=== PATIENT | male | born 1965 | race Native Hawaiian/Other Pacific Islander ===

== ENCOUNTER 2020-10-19 08:40 | Day surgery (SDC) | payer OTHER ==
[2020-10-15 10:24] VITALS: BMI 31.6
[~2020-10-19 08:40] MED LIST: LACTATED RINGERS 1,000 ML IV SCH
[2020-10-19 09:23] VITALS: RESP 16; TEMP 97.7
[2020-10-19] MEDS ORDERED: LIDOCAINE 1% (10MG/ML) FOR IV START INTRADERMA ONE (09:28)
[2020-10-19] MEDS ORDERED: PROPOFOL 10 MG/ML 20 ML VIAL IV ONE (10:13)
--- NOTE | 2020-10-19 10:41 | P.PCN ---
Date of Procedure: 10/19/20 Description of Procedure: BRIEF HISTORY: Patient is a 55-year-old male presenting for outpatient colonoscopy for screening for malignant neoplasm of the colon. No prior colonoscopy. No change in bowel. No family history of colon cancer. PROCEDURE PERFORMED: Colonoscopy with polypectomy. PREOPERATIVE DIAGNOSIS: Screening for malignant neoplasm of the colon, no prior colonoscopy. ESTIMATED BLOOD LOSS: Minimal. IV sedation per Anesthesia. PROCEDURE: After informed consent was obtained, the patient, was brought into the endoscopy unit. IV sedation was administered by Anesthesia under continuous monitoring. Digital rectal examination was normal. Initially the Olympus CF-190 flexible video colonoscope was then inserted in the rectum, gradually advanced into the cecum without any difficulty. Careful examination was performed as the scope was gradually being withdrawn. Ileocecal valve and the appendiceal orifice were visualized and appeared normal. Prep was excellent. Mucosa of the cecum, ascending colon, transverse colon, descending colon, sigmoid colon, and rectum appeared normal. Diminutive 2 mm ileocecal valve polyp removed with forceps polypectomy. Multiple small mouth diverticula in the sigmoid and descending colon. Retroflexion was performed in the rectum and no lesions were seen, low- grade internal hemorrhoids. The patient tolerated the procedure well. IMPRESSION: Diminutive ileocecal valve polyp removed with cold forcep polypectomy. Mild left colonic diverticulosis. RECOMMENDATIONS: Findings of this examination were discussed with the patient and his family. Okay to resume diet. Okay to resume medications. Await pathology from p olypectomy. Recommend repeat colonoscopy in 7 years for colon polyp, pending pathology from polypectomy.
[2020-10-19 11:01] VITALS: BP 118/81; PULSE 69
== END 2020-10-19 11:38 | disposition home or self-care (01) ==
LOC: ORWHC2ENDO 08:40
PROVIDERS: ATTEND Internal Medicine
DX: Z12.11 Encounter for screening for malignant neoplasm of colon (principal); D12.0 Benign neoplasm of cecum; K57.30 Diverticulosis of large intestine without perforation or abscess without bleeding; M06.9 Rheumatoid arthritis, unspecified; F17.200 Nicotine dependence, unspecified, uncomplicated; Z79.1 Long term (current) use of non-steroidal anti-inflammatories (NSAID); Z79.51 Long term (current) use of inhaled steroids; Z79.899 Other long term (current) drug therapy; Z98.890 Other specified postprocedural states
CPT/HCPCS: 88305; 45380; J2704

== ENCOUNTER → 2022-08-01 | Outpatient (CLI) | payer OTHER ==
--- NOTE | 2022-08-01 14:39 | XR ---
EXAMINATION TYPE: XR femur LT DATE OF EXAM: 08/01/2022 2:07 PM INDICATION: Patient age:Male; 57 years old; Reason for study: M79.605 PAIN IN LEFT LEG; COMPARISON: None TECHNIQUE: The left femur was examined in frontal and lateral projections. FINDINGS: No evidence of acute osseous pathology, joint dislocation, or soft tissue swelling mild os teophyte formation of the acetabulum. IMPRESSION: 1. No acute osseous pathology. 2. Mild left hip osteoarthrosis.
== END | disposition home or self-care (01) ==
LOC: RADXRMAIN 13:49
PROVIDERS: ATTEND Internal Medicine
DX: M16.12 Unilateral primary osteoarthritis, left hip (principal)

== ENCOUNTER 2024-09-28 23:57 | Inpatient (IN) | payer OTHER ==
--- NOTE | 2024-09-29 00:32 | ED ---
SOB HPI - General Chief Complaint: Shortness of Breath Stated Complaint: SOB Time Seen by Provider: 09/29/24 00:27 Source: patient, RN notes reviewed Mode of arrival: ambulatory Limitations: no limitations - History of Present Illness Initial Comments: 59-year-old male with history of asthma presenting for shortness of breath x 2 days. States he has been sick with cough, fever, nasal congestion, and bodyaches for approximately 1 week, however cough, wheezing, and shortness of breath worsened 2 days ago. Denies chest discomfort. States he has tried breathing treatments with little relief. States he is having difficulty taking a deep breath in and believes he may have pneumonia. No other health conditions. He is a former smoker. - Related Data Home Medications Medication Instructions Recorded Confirmed Acetaminophen-Codeine 300-30mg 1 tab PO DAILY PRN 10/15/20 10/19/20 [Tylenol w/codeine #3] Budesonide/Formoterol Fumarate 1 puff INHALATION DAILY 10/15/20 10/19/20 [Symbicort 160-4.5 Mcg Inhaler] Ibuprofen 800 mg PO BID PRN 10/15/20 10/15/20 Allergies Allergy/AdvReac Type Severity Reaction Status Date / Time No Known Allergies Allergy Verified 09/29/24 00:02 Review of Systems ROS Statement: Those systems with pertinent positive or pertinent negative responses have been documented in the HPI. ROS Other: All systems not noted in ROS Statement are negative. Past Medical History Past Medical History: Asthma, Rheumatoid Arthritis (RA) Additional Past Medical History / Comment(s): broken tooth History of Any Multi-Drug Resistant Organisms: None Reported Past Surgical History: Orthopedic Surgery Additional Past Surgical History / Comment(s): lt knee arthroscopy Past Anesthesia/Blood Transfusion Reactions: No Reported Reaction Past Psychological History: No Psychological Hx Reported Smoking Status: Former smoker Past Alcohol Use History: None Reported Past Drug Use History: None Reported General Exam Limitations: no limitations General appearance: alert, in no apparent distress Head exam: Present: atraumatic, normocephalic, normal inspection Eye exam: Present: normal appearance, PERRL, EOMI. Absent: scleral icterus, conjunctival injection, periorbital swelling Respiratory exam: Present: wheezes (Expiratory wheezing in all lung ch bilaterally). Absent: normal lung sounds bilaterally, respiratory distress, rales, rhonchi, stridor, accessory muscle use Cardiovascular Exam: Present: normal rhythm, tachycardia, normal heart sounds. Absent: systolic murmur, diastolic murmur, rubs, gallop, clicks Course Vital Signs 09/28/24 09/29/24 09/29/24 23:58 01:09 01:14 Temperature 99.6 F 100.2 F H Pulse Rate 112 H 103 H 103 H Respiratory 20 22 Rate Blood Pressure 142/90 140/96 O2 Sat by Pulse 93 L 93 L Oximetry 09/29/24 09/29/24 09/29/24 01:20 02:28 03:00 Temperature 101.1 F H 98.4 F Pulse Rate 109 H 107 H 100 Respiratory 20 19 16 Rate Blood Pressure 134/89 116/87 O2 Sat by Pulse 91 L 96 Oximetry Medical Decision Making - Medical Decision Making Was pt. sent in by a medical professional or institution (Dr. PA, [facility], urgent care, hospital, or senior living...) When possible be specific @ -No Did you speak to anyone other than the patient for history (EMS, parent, family, police, friend...)? What history was obtained from this source @ -No Did you review nursing and triage notes (agree or disagree)? Why? @ -I reviewed and agree with nursing and triage notes Were old charts reviewed (outside hosp., previous admission, EMS record, old EKG, old radiological studies, urgent care reports/EKG's, senior living records)? Report findings @ -No old charts were reviewed Differential Diagnosis (chest pain, altered mental status, abdominal pain women, abdominal pain men, vaginal bleeding, weakness, fever, dyspnea, syncope, headache, dizziness, GI bleed, back pain, seizure, CVA, palpatations, mental health, musculoskeletal)? @ -Differential Dyspnea: Coronary syndrome, arrhythmia, tamponade, asthma, COPD, pulmonary embolism, pneumonia, pneumothorax, pulmonary effusion, anaphylaxis, diabetic ketoacidosis, flailed chest, pulmonary contusion, diaphragmatic rupture, anemia, neuromuscular, this is not meant to be an all-inclusive list. EKG interpreted by me (3pts min.). @ -None X-rays interpreted by me (1pt min.). @ -Chest x-ray reveals consolidation changes at left upper lobe CT interpreted by me (1pt min.). @ -None done U/S interpreted by me (1pt. min.). @ -None done What testing was considered but not performed or refused? (CT, X-rays, U/S, labs)? Why? @ -None What meds were considered but not given or refused? Why? @ -None Did you discuss the management of the patient with other professionals (professionals i.e. , PA, [facility], lab, RT, psych nurse, health care social worker, industrial engineering manager, teacher, staff electronic warfare officer, oil field caser)? Give summary @ -No Was smoking cessation discussed for >3mins.? @ -No Was critical care preformed (if so, how long)? @ -No Were there social determinants of health that impacted care today? How? (Homelessness, low income, unemployed, alcoholism, drug addiction, transportation, low edu. Level, literacy, decrease access to med. care, [facility], rehab)? @ -No Was there de-escalation of care discussed even if they declined (Discuss DNR or withdrawal of care, Hospice)? DNR status @ -No What co-morbidities impacted this encounter? (DM, HTN, Smoking, COPD, CAD, Cancer, CVA, ARF, Chemo, Hep., AIDS, mental health diagnosis, sleep apnea, morbid obesity)? @ -Asthma Was patient admitted / discharged? Hospital course, mention meds given and route, prescriptions, significant lab abnormalities, going to OR and other pertinent info. @ -Admitted. 59-year-old male with history of asthma presenting for shortness of breath x 2 days. Patient is febrile, tachycardic, satting at 93% on room air. No acute respiratory distress or signs of labored breathing. There are expiratory wheezes in all lung ch bilaterally. Patient was provided with dose of ibuprofen for fever and Solu-Medrol. Patient is COVID-positive. Lab work largely unremarkable besides mildly elevated liver enzymes. White blood cell count stable at 6.5. Chest x-ray reveals consolidation changes of left upper lobe. Patient updated on results. Upon reevaluation, patient reports symptoms are worsening and oxygen saturation dropped to 90%. Patient was placed on 2 L of oxygen oxygen improved to 96%. Patient was admitted to observation for IV antibiotics and IV steroids. Case was discussed with my ED attending Dr. Enriquez. Undiagnosed new problem with uncertain prognosis? @ -No Drug Therapy requiring intensive monitoring for toxicity (Heparin, Nitro, Insulin, Cardizem)? @ -No Were any procedures done? @ -No Diagnosis/symptom? @ -COVID-19, pneumonia Acute, or Chronic, or Acute on Chronic? @ -Acute Uncomplicated (without systemic symptoms) or Complicated (systemic symptoms)? @ -Complicated Side effects of treatment? @ -No Exacerbation, Progression, or Severe Exacerbation? @ -No Poses a threat to life or bodily function? How? (Chest pain, USA, LA, pneumonia, PE, COPD, DKA, ARF, appy, cholecystitis, CVA, Diverticulitis, Homicidal, Suicidal, threat to staff... and all critical care pts) @ -Yes - Lab Data Result diagrams: 09/29/24 00:55 09/29/24 00:55 Lab Results 09/29/24 09/29/24 09/29/24 Range/Units 00:55 00:55 00:55 WBC 6.5 (3.8-10.6) k/uL RBC 4.77 (4.30-5.90) m/uL Hgb 14.8 (13.0-17.5) gm/dL Hct 44.1 (39.0-53.0) % MCV 92.4 (80.0-100.0) fL MCH 31.1 (25.0-35.0) pg MCHC 33.6 (31.0-37.0) g/dL RDW 14.4 (11.5-15.5) % Plt Count 193 (150-450) k/uL MPV 8.0 Neutrophils % 85 % Lymphocytes % 8 % Monocytes % 4 % Eosinophils % 1 % Basophils % 0 % Neutrophils # 5.5 (1.3-7.7) k/uL Lymphocytes # 0.5 L (1.0-4.8) k/uL Monocytes # 0.3 (0-1.0) k/uL Eosinophils # 0.0 (0-0.7) k/uL Basophils # 0.0 (0-0.2) k/uL Sodium 134 L (137-145) mmol/L Potassium 4.1 (3.5-5.1) mmol/L Chloride 102 (98-107) mmol/L Carbon Dioxide 24 (22-30) mmol/L Anion Gap 8 mmol/L BUN 14 (9-20) mg/dL Creatinine 1.04 (0.66-1.25) mg/dL Est GFR (CKD-EPI)AfAm >90 (>60 ml/min/1.73 sqM) Est GFR (CKD-EPI)NonAf 78 (>60 ml/min/1.73 sqM) Glucose 105 H (74-99) mg/dL Plasma Lactic Acid Brandon 1.0 (0.7-2.0) mmol/L Calcium 7.7 L (8.4-10.2) mg/dL Total Bilirubin 0.7 (0.2-1.3) mg/dL AST 75 H (17-59) U/L ALT 53 H (4-49) U/L Alkaline Phosphatase 47 (38-126) U/L Total Protein 6.6 (6.3-8.2) g/dL Albumin 3.6 (3.5-5.0) g/dL Influenza Type A (PCR) (Not Detectd) Influenza Type B (PCR) (Not Detectd) RSV (PCR) (Not Detectd) SARS-CoV-2 (PCR) (Not Detectd) 09/29/24 Range/Units 00:55 WBC (3.8-10.6) k/uL RBC (4.30-5.90) m/uL Hgb (13.0-17.5) gm/dL Hct (39.0-53.0) % MCV (80.0-100.0) fL MCH (25.0-35.0) pg MCHC (31.0-37.0) g/dL RDW (11.5-15.5) % Plt Count (150-450) k/uL MPV Neutrophils % % Lymphocytes % % Monocytes % % Eosinophils % % Basophils % % Neutrophils # (1.3-7.7) k/uL Lymphocytes # (1.0-4.8) k/uL Monocytes # (0-1.0) k/uL Eosinophils # (0-0.7) k/uL Basophils # (0-0.2) k/uL Sodium (137-145) mmol/L Potassium (3.5-5.1) mmol/L Chloride (98-107) mmol/L Carbon Dioxide (22-30) mmol/L Anion Gap mmol/L BUN (9-20) mg/dL Creatinine (0.66-1.25) mg/dL Est GFR (CKD-EPI)AfAm (>60 ml/min/1.73 sqM) Est GFR (CKD-EPI)NonAf (>60 ml/min/1.73 sqM) Glucose (74-99) mg/dL Plasma Lactic Acid Brandon (0.7-2.0) mmol/L Calcium (8.4-10.2) mg/dL Total Bilirubin (0.2-1.3) mg/dL AST (17-59) U/L ALT (4-49) U/L Alkaline Phosphatase (38-126) U/L Total Protein (6.3-8.2) g/dL Albumin (3.5-5.0) g/dL Influenza Type A (PCR) Not Detected (Not Detectd) Influenza Type B (PCR) Not Detected (Not Detectd) RSV (PCR) Not Detected (Not Detectd) SARS-CoV-2 (PCR) Detected A (Not Detectd) Disposition Clinical Impression: COVID-19, Pneumonia Disposition: ADMITTED IP TO THIS [facility] Time of Disposition: 03:10
[2024-09-29] MEDS: methylPREDNISolone SOD SUCCI 125 MG/2 ML VIAL IV STA (01:11)
[2024-09-29] MEDS: IPRATROPIUM-ALBUTEROL 3 ML NEB INHALATION STA (01:14)
[2024-09-29 01:20] LABS: ALT 53 U/L (4-49); African American GFR (CKD) >90 (>60 ml/min/1.73 sqM); Albumin 3.6 g/dL (3.5-5.0); Anion Gap 8 mmol/L; Blood Urea Nitrogen 14 mg/dL (9-20); Calcium 7.7 mg/dL (8.4-10.2); Carbon Dioxide 24 mmol/L (22-30); Chloride 102 mmol/L (98-107); Glucose 105 mg/dL (74-99); Non-African American GFR(CKD) 78 (>60 ml/min/1.73 sqM); Sodium 134 mmol/L (137-145); Total Bilirubin 0.7 mg/dL (0.2-1.3); Total Protein 6.6 g/dL (6.3-8.2)
[2024-09-29 01:21] LABS: AST 75 U/L (17-59); Alkaline Phosphatase 47 U/L (38-126); Potassium 4.1 mmol/L (3.5-5.1)
[2024-09-29 01:24] LABS: Basophils % (A) 0 %; Eosinophils % (A) 1 %; HCT 44.1 % (39.0-53.0); HGB 14.8 gm/dL (13.0-17.5); Lymphocytes # (A) 0.5 k/uL (1.0-4.8); Lymphocytes % (A) 8 %; MCH 31.1 pg (25.0-35.0); MCHC 33.6 g/dL (31.0-37.0); MCV 92.4 fL (80.0-100.0); Monocytes # (A) 0.3 k/uL (0-1.0); Monocytes % (A) 4 %; Neutrophils # (A) 5.5 k/uL (1.3-7.7); Neutrophils % (A) 85 %; Platelet Count 193 k/uL (150-450); RBC 4.77 m/uL (4.30-5.90); RDW 14.4 % (11.5-15.5); WBC 6.5 k/uL (3.8-10.6)
[2024-09-29 01:56] LABS: Influenza A Not Detected (Not Detectd); Influenza B Not Detected (Not Detectd); RSV Not Detected (Not Detectd)
--- NOTE | 2024-09-29 02:33 | XR ---
EXAM: XR Chest, 2 Views CLINICAL HISTORY: ITS.REASON XR Reason: cough, shortness of breath TECHNIQUE: Frontal and lateral views of the chest. COMPARISON: Chest x-ray of 07/12/2017. FINDINGS: Lungs: There is consolidative change at the left upper lobe most suggestive of left upper lobe pneumonia. Pleural space: Unremarkable. No pneumothorax. Heart: Heart is normal in size. No cardiomegaly. Mediastinum: Unremarkable. Normal mediastinal contour. Bones/joints: Osseous structures and soft tissues are unremarkable. No acute fracture. Other findings: Hypoaeration. IMPRESSION: There is consolidative change at the left upper lobe most distal left upper lobe pneumonia. Clinical correlation and follow-up imaging in 4-6 weeks is advised to document resolution. If there is concern for other etiologies, CT imaging should be performed.
[2024-09-29] MEDS ORDERED: PNEUMONIA PROTOCOL UTILIZED 1 EACH MISC PO PRN (03:02)
[2024-09-29] MEDS: IBUPROFEN 800 MG TAB PO STA (03:07)
[2024-09-29] MEDS: ALBUTEROL NEBULIZED 2.5 MG/3 ML INHALATION SCH (03:32)
[2024-09-29] MEDS: AZITHROMYCIN 500 MG in SODIUM CHLORIDE 0.9% 250 ML IVPB STA (03:49)
[2024-09-29] MEDS ORDERED: ALBUTEROL NEBULIZED 2.5 MG/3 ML INHALATION PRN (04:48)
[2024-09-29] MEDS ORDERED: ALBUTEROL HFA INHALER INHALATION PRN (08:00)
[2024-09-29] MEDS: methylPREDNISolone SOD SUCCI 125 MG/2 ML VIAL IV SCH (09:07)
[2024-09-29] MEDS ORDERED: traMADol 50 MG TAB PO PRN (13:34)
[2024-09-29] MEDS ORDERED: IBUPROFEN 800 MG TAB PO PRN (13:34)
[2024-09-29] MEDS ORDERED: CALCIUM CARBONATE 500 MG CHEWABLE PO PRN (13:37)
[2024-09-29] MEDS ORDERED: LACTULOSE 20 GM/30 ML CUP PO PRN (13:37)
[2024-09-29] MEDS ORDERED: ONDANSETRON 4 MG/2 ML VIAL IVP PRN (13:37)
[2024-09-29] MEDS ORDERED: NALOXONE 0.4 MG/ML 1 ML VIAL IV PRN (13:37)
[2024-09-29] MEDS ORDERED: ALPRAZolam 0.25 MG TAB PO PRN (13:37)
[2024-09-29] MEDS: MONTELUKAST 10 MG TAB PO SCH (14:33)
[2024-09-29] MEDS: LORATADINE 10 MG TAB PO SCH (14:33)
[2024-09-29] MEDS: ENOXAPARIN 40 MG/0.4 ML SYRINGE SQ SCH (14:33)
[2024-09-29] MEDS: ALBUTEROL HFA INHALER INHALATION SCH (15:04)
[2024-09-29] MEDS: TIOTROPIUM 2.5 MCG INHALER INHALATION SCH (15:04)
[2024-09-29] MEDS: SYMBICORT 160-4.5 MCG INHALER INHALATION SCH (15:04)
--- NOTE | 2024-09-29 15:28 | P.HPIM ---
History of Present Illness H&P Date: 09/29/24 Chief Complaint: Short of breath I am rounding for Dr. Devan Crowley. Pleasant 59-year-old patient, with chronic medical condition including COPD, muscle spasms, rheumatoid arthritis For about a week ago patient started feeling unwell. This symptoms developed of cough shortness of breath. Just felt very tired achy. Rundown. Patient stopped smoking about 10 months ago. In the ER and a fever of 101.1. Pulse ox was 91% room air. Patient tested positive for COVID. Decreased appetite. Bowels normal. Review of systems: GEN.: Fever tired decreased appetite EYES: None HEENT: None NECK: None RESPIRATORY: As above CARDIOVASCULAR: None GASTROINTESTINAL: None GENITOURINARY: None MUSCULOSKELETAL: Muscle aches e LYMPHATICS: None HEMATOLOGICAL: None PSYCHIATRY: None NEUROLOGICAL: None Social history: Lives alone. Works at [employer]. Stop smoking 10 months ago. Smoked for close to 30 years though only did 2 to 3 cigarettes a day. Patient also cut back on his drinking slightly more than normal sometime ago. Physical examination: VITAL SIGNS: 101.1, 107, 19, 134 x 89, 91% room air GENERAL: BMI 34.9, reclining bed awake tired. EYES: Pupils equal. Conjunctiva boston l. HEENT: External appearance of nose and ears normal, oral cavity grossly normal. NECK: JVD not raised; masses not palpable. HEART: First and second heart sounds are normal; no edema. LUNGS: Respiratory rate increased, diminished breath sound provide expression some crackles. ABDOMEN: Soft, nontender, liver spleen not palpable, no masses palpable. PSYCH: Alert and oriented x3; mood and affect boston l. MUSCULOSKELETAL:No Clubbing/cyanosis;muscles-grossly intact NEUROLOGICAL: Cranial nerves grossly intact; no facial asymmetry, power and sensation grossly intact. LYMPHATICS: No lymph nodes palpable in the axilla and neck INVESTIGATIONS, reviewed in the clinical context: September 29, 2024: White count 6.5 hemoglobin 14.8 platelets 193 sodium 134 potassium 4.1 BUN 14 creatinine 1.04 AST 75 ALT 53 SARS-CoV-2 PCR: Detected [influenza type A, type B, RSV: Not detected] Chest x-ray film personally reviewed by me-infiltrate Assessment plan: -COVID-19 pneumonitis Steroids. Subcu Lovenox -Probable secondary pneumonia bacterial suspect gram-negative organism IV ceftriaxone -Acute hypoxic respiratory failure combination of COVID-19, bacterial pneumonia, COPD 2 L nasal cannula -Acute COPD exacerbation in a light smoker Symbicort. Albuterol 4 puffs 4 times daily. IV Solu-Medrol Spiriva -Rheumatoid arthritis Does take ibuprofen -Muscle spasms Zanaflex as needed Care was discussed with the patient. Given the complexity and severity of patient's condition expect the patient to be in the hospital at least for 2 overnights Past Medical History Past Medical History: Asthma, Rheumatoid Arthritis (RA) Additional Past Medical History / Comment(s): broken tooth History of Any Multi-Drug Resistant Organisms: None Reported Past Surgical History: Orthopedic Surgery Additional Past Surgical History / Comment(s): lt knee arthroscopy Past Anesthesia/Blood Transfusion Reactions: No Reported Reaction Past Psychological History: No Psychological Hx Reported Smoking Status: Former smoker Past Alcohol Use History: None Reported Past Drug Use History: None Reported Medications and Allergies Home Medications Medication Instructions Recorded Confirmed Type Ibuprofen 800 mg PO TID PRN 10/15/20 09/29/24 History Albuterol Sulfate/Budesonide 2 puff INHALATION RT-Q4H PRN 09/29/24 09/29/24 History [Airsupra 90-80 Mcg Inhaler] Azithromycin [Zithromax] 500 mg PO DAILY 09/29/24 09/29/24 History Fexofenadine HCl [Wanda Allergy] 180 mg PO DAILY 09/29/24 09/29/24 History Fluticasone/Umeclidin/Vilanter 1 puff INHALATION RT-DAILY 09/29/24 09/29/24 History [Trelegy Ellipta 200-62.5-25] Montelukast [Singulair] 10 mg PO DAILY 09/29/24 09/29/24 History tadalafiL 20 mg PO DAILY PRN 09/29/24 09/29/24 History tiZANidine [Zanaflex] 4 mg PO HS 09/29/24 09/29/24 History traMADol HCL 50 mg PO Q12H PRN 09/29/24 09/29/24 History Allergies Allergy/AdvReac Type Severity Reaction Status Date / Time No Known Allergies Allergy Verified 09/29/24 09:05 Physical Exam Vitals: Vital Signs Temp Pulse Resp BP Pulse Ox 09/29/24 14:31 82 18 143/90 96 09/29/24 09:10 98.2 F 76 18 123/85 97 09/29/24 06:25 97.9 F 84 18 134/92 99 09/29/24 05:00 116/71 98 09/29/24 03:00 98.4 F 100 16 116/87 96 09/29/24 02:28 101.1 F H 107 H 19 134/89 91 L 09/29/24 01:20 109 H 20 09/29/24 01:14 103 H 22 09/29/24 01:09 100.2 F H 103 H 140/96 93 L 09/28/24 23:58 99.6 F 112 H 20 142/90 93 L Intake and Output 09/29/24 09/29/24 09/29/24 06:59 14:59 22:59 Other: Weight 95.254 kg Results CBC & Chem 7: 09/29/24 00:55 09/29/24 00:55 Labs: Abnormal Lab Results - Last 24 Hours (Table) 09/29/24 09/29/24 09/29/24 Range/Units 00:55 00:55 00:55 Lymphocytes # 0.5 L (1.0-4.8) k/uL Sodium 134 L (137-145) mmol/L Glucose 105 H (74-99) mg/dL Calcium 7.7 L (8.4-10.2) mg/dL AST 75 H (17-59) U/L ALT 53 H (4-49) U/L SARS-CoV-2 (PCR) Detected A (Not Detectd)
[2024-09-29] MEDS: TEMAZEPAM 15 MG CAP PO PRN (21:43)
[2024-09-29] MEDS: tiZANidine 4 MG TAB PO SCH (21:43)
[2024-09-30] MEDS: ACETAMINOPHEN TAB 325 MG TAB PO PRN (08:03)
--- NOTE | 2024-09-30 19:50 | PN ---
PROGRESS NOTE SUBJECTIVE: A 59-year-old white male, came in with COPD, muscle spasm and RA, not feeling well. He stopped smoking 10 months ago. He had a fever of 101, O2 91%. He is positive for COVID; it started with COVID pneumonia. REVIEW OF SYSTEMS: 14-point review of systems positive for as mentioned above, muscle aches and weakness. He smoked for 30 years. PHYSICAL EXAMINATION: VITAL SIGNS: T-max 101, pulse 107, respiratory rate 16 to 18, blood pressure 130s over 80s, O2 91. HEENT: Normocephalic, atraumatic. Pupils are equally, round, and reactive. NEUROLOGIC: Cranial nerves intact. LUNGS: Decreased breath sounds x4. ASSESSMENT: 1. COVID-19 pneumonitis. 2. Subcu Lovenox. 3. Secondary pneumonia, suspect gram-negative organism on Rocephin and oxygen for bilateral pneumonia. Symbicort, albuterol, steroids, muscle relaxers. Continue current treatment. Ambulate as tolerated. Monitor electrolytes. Wean off oxygen as tolerated. Prognosis guarded. MMODL / IJN: [id number] /
[2024-10-01 07:33] VITALS: RESP 16
[2024-10-01 15:20] VITALS: BP 159/96; PULSE 77; TEMP 98.3
[2024-10-01] MEDS ORDERED: CEFDINIR 300 MG CAP PO SCH (21:00)
[2024-10-02] MEDS ORDERED: methylPREDNISolone 4 MG TAB TAPER PO SCH (09:00)
== END 2024-10-01 18:04 | disposition home or self-care (01) | DRG 177 ==
LOC: EC 23:57 → 6NMEDSUR 09-29 02:57 → OBSVTOIN 09-29 02:58 → 6NMEDSUR 09-29 06:07
PROVIDERS: ADMIT Family Medicine; ATTEND Family Medicine
DX: U07.1 COVID-19 (principal); J12.82 Pneumonia due to coronavirus disease 2019; J96.01 Acute respiratory failure with hypoxia; J15.69 Pneumonia due to other Gram-negative bacteria; J44.0 Chronic obstructive pulmonary disease with (acute) lower respiratory infection; M06.9 Rheumatoid arthritis, unspecified; M62.838 Other muscle spasm; Z87.891 Personal history of nicotine dependence; Z79.51 Long term (current) use of inhaled steroids; Z79.899 Other long term (current) drug therapy
CPT/HCPCS: 36415; 71046; 80053; 83605; 85025; 85379; 87636; 94640; 94760; 96365; 96372; 96375; 96376; 99285